=== PATIENT | female | born 1945 | race Caucasian/White ===

== ENCOUNTER → 2020-03-13 11:03 | Outpatient (BNVA) | payer MEDICARE, MEDICAID, SELFPAY | PROVIDERS: PCP Family Medicine; Referring Provider Physician Assistant; Visit Provider Internal Medicine | DX: J44.9 Chronic obstructive pulmonary disease, unspecified (principal); G47.34 Idiopathic sleep related nonobstructive alveolar hypoventilation; F17.210 Nicotine dependence, cigarettes, uncomplicated; Z79.899 Other long term (current) drug therapy; Z71.6 Tobacco abuse counseling | CPT/HCPCS: 99212 ==

== ENCOUNTER → 2020-07-09 11:04 | Outpatient (BNVA) | payer MEDICARE, MEDICAID, SELFPAY | PROVIDERS: PCP Family Medicine; Visit Provider Internal Medicine | DX: J44.9 Chronic obstructive pulmonary disease, unspecified (principal); F17.200 Nicotine dependence, unspecified, uncomplicated; G47.34 Idiopathic sleep related nonobstructive alveolar hypoventilation | CPT/HCPCS: 99212 ==

== ENCOUNTER → 2020-12-01 11:25 | Outpatient (BNVA) | payer MEDICARE, MEDICAID, SELFPAY | PROVIDERS: PCP Internal Medicine; Visit Provider Internal Medicine | DX: J44.9 Chronic obstructive pulmonary disease, unspecified (principal); G47.34 Idiopathic sleep related nonobstructive alveolar hypoventilation; F17.200 Nicotine dependence, unspecified, uncomplicated | CPT/HCPCS: 99212 ==

== ENCOUNTER 2022-02-25 11:48 | Outpatient (REF) | payer MEDICARE, MEDICAID, SELFPAY ==
[2022-02-25 12:16] LABS: MANUAL DIFF FLAG NO
[2022-02-25 12:51] LABS: Basophils Absolute Auto 0.1 X10*3/uL (0.0-0.2); Basophils Percent Auto 0.9 % (0-2); Eosinophils Absolute Auto 0.1 X10*3/uL (0.0-0.4); Eosinophils Percent Auto 1.9 % (0-4); Hematocrit 42.2 % (37.0-47.0); Hemoglobin 13.9 g/dl (12.0-16.0); Imm Gran Abs Auto 0.01 X10*3/uL (0.00-0.03); Imm Gran Pct Auto 0.2 % (0.0-0.4); Lymphocytes Absolute Auto 1.8 X10*3/uL (1.2-4.9); Lymphocytes Percent Auto 33.8 % (20-40); Mean Corpuscular HGB Conc 32.9 g/dl (31.0-35.0); Mean Corpuscular Hemoglobin 34.1 pg (27.0-33.0); Mean Corpuscular Volume 103.4 fL (80.0-98.0); Mean Platelet Volume 10.3 fL (9.4-12.3); Monocytes Absolute Auto 0.4 X10*3/uL (0.1-1.2); Neutrophils Percent Auto 55.2 % (45-73); Platelet Count 209 X10*3/uL (160-400); Red Blood Count 4.08 X10*6/uL (4.20-5.50); Red Cell Distribution Width 13.6 % (11.0-16.0); White Blood Count 5.4 X10*3/uL (4.8-10.8)
[2022-02-25 13:31] LABS: Appearance Urine Clear; Color Urine Dark Yellow; Glucose Urine UA Negative (Negative); Leukocyte Esterase Urine Trace (Negative); Nitrite Urine Negative (Negative); Specific Gravity - Urine 1.025 (1.005-1.025); UMIC TRIGGER UACC YES; Urine Blood Negative (Negative); Urine Ketones Negative (Negative); Urine Protein Trace mg/dL (Neg-Trace)
[2022-02-25 13:38] LABS: Alanine Aminotransferase 6 U/L (0-31); Albumin Level 4.1 g/dL (3.5-5.0); Alkaline Phosphatase 86 U/L (39-117); Anion Gap 17 (12-20); Aspartate Amino Transferase 13 U/L (5-31); Bilirubin Total 0.5 mg/dL (0.0-1.0); Blood Urea Nitrogen 12 mg/dL (9-16); Calcium 9.1 mg/dL (8.4-10.2); Carbon Dioxide 27 mmol/L (22-29); Chloride 103 mmol/L (96-108); Cholesterol 218 mg/dL; Estimated Glomerular Filt Rate > 60; Glucose Fasting 87 mg/dL (60-99); HDL Cholesterol 48 mg/dL; LDL Cholesterol Calculated 150 mg/dl; Potassium 4.8 mmol/L (3.3-5.1); Sodium 142 mmol/L (135-145); Total Protein 6.8 g/dL (6.5-8.0); Triglycerides 100 mg/dL
[2022-02-25 13:41] LABS: Bacteria Urine Trace (None Seen); Hyaline Casts Urine 0-2 /LPF (0-2); WBC Urine 0-5 /HPF (0-5)
[2022-02-25 13:50] LABS: TSH reflex Free T4 1.39 uIU/mL (0.32-4.0); Vitamin D 25-OH Total 9.5 ng/mL (>30)
== END 2022-02-25 11:49 | disposition home or self-care (01) ==
LOC: HO.LAB 11:48
PROVIDERS: PCP Internal Medicine; Visit Provider Internal Medicine
DX: E78.00 Pure hypercholesterolemia, unspecified (principal); E55.9 Vitamin D deficiency, unspecified; I10 Essential (primary) hypertension
CPT/HCPCS: 36415; 80053; 80061; 81001; 82306; 84443; 85025

== ENCOUNTER 2022-08-26 12:32 | Outpatient (REF) | payer MEDICARE, MEDICAID, SELFPAY ==
--- NOTE | ~2022-08-26 | XR_ITS ---
EXAMINATION: XR CHEST CLINICAL INFORMATION: Dyspnea. COMPARISON: 05/28/2018 TECHNIQUE: 2 views of the chest were obtained. FINDINGS: There is mild chronic interstitial lung disease present. There is some peripheral diminished vascularity consistent with emphysematous change. Central pulmonary arteries are prominent. Heart normal size. No pneumothorax or pleural effusion. No evidence of pulmonary edema. XR/XR chest 2V IMPRESSION: COPD with small amount of chronic interstitial lung disease.
== END 2022-08-26 12:33 | disposition home or self-care (01) ==
LOC: HO.XRAY 12:32
PROVIDERS: PCP Internal Medicine; Visit Provider Internal Medicine
DX: R06.00 Dyspnea, unspecified (principal); J44.9 Chronic obstructive pulmonary disease, unspecified
CPT/HCPCS: 71046

== ENCOUNTER 2023-07-01 13:55 | Outpatient (AMB) | payer MEDICARE, MEDICAID, SELFPAY ==
[2023-07-01 14:10] VITALS: BP 130/70; PULSE 67; O2SAT 93; BMI 20.6
--- NOTE | 2023-07-01 14:10 | MHC.PC.OV ---
Vital Signs 07/01/23 14:10 Height 5 ft 3 in Weight 116 lb 8 oz BMI 20.6 BP 130/70 Blood Pressure Location Lt brachial Position Sitting Pulse 67 Pulse Source Pulse Oximeter Pulse Oximetry (%) 93 Oxygen Delivery Method Room Air Intake Visit Reasons: COPD, hyperlipidemia Hand Funnel Coater Required: No Accompanied by: Self / Same As Patient Allergies oxycodone [From PERCOCET] Allergy (Intermediate, Verified 07/03/23 12:46) HIVES bacitracin [BACITRACIN] Allergy (Unknown, Verified 07/03/23 12:46) BLISTERS, rash Medication List - Last Reconciled 07/03/23 by Lanre Webb MD Advair Diskus 250-50 mcg/dose (fluticasone propion-salmeterol) 1 inh inhalation BID 90 days NS albuterol sulfate 90 mcg/actuation 2 puffs inhalation Q6H PRN 90 days cholecalciferol (vitamin D3) 50 mcg PO DAILY 90 days Incruse Ellipta 62.5 mcg/actuation (umeclidinium) 1 inh inhalation DAILY 90 days NS metoprolol tartrate 25 mg PO BID 90 days nitroglycerin 0.4 mg sublingual Q5M PRN [OXYGEN CONCENTRATOR As directed] prednisone 4 tablets x 3 days, then 3 tablets x 3 days, then 2 tablets x 3 days, then 1 tablet x 3 days 12 days sennosides (senna) Take 2 capsules daily at bedtime for 7 days, then 1 to 2 capsules daily at bedtime as needed 30 days sertraline 50 mg PO DAILY 90 days tizanidine 4 mg PO BID PRN trazodone 50 mg PO BEDTIME PRN 90 days Tobacco use date assessed: 07/01/23 Fall risk assessment: No Falls in past year Last assessed Fall Risk: 07/01/23 Dental Screening Dental Screen Date: 07/01/23 Did you have a dental visit in the last 12 months?: Yes Did you have a dental problem in the last 6 months where you did not have access to dental care?: No Was dental information given to patient?: Patient has dentist HPI COPD, hyperlipidemia HPI Details Patient comes in today for her follow up visit States that she has been sick with increased cough and congestion and on and off SOB for almost 2 months now (since before ) and that she tried calling in for an appointment at the beginning of the year unsuccessfully States that she also tried asking for some Rx for oral Prednisone until she is able to be seen but was reportedly denied having the Rx called in States that she has then just been taking any cough/cold medications that she could get her hands on to get through until she is able to come in today States that her cough and respiratory symptoms have gotten so bad that she even quit smoking completely over the past couple of weeks ago, something she thought she would not be doing before Adds that she has been experiencing some lower abdominal pain and discomfort for a couple of weeks now States that she has not seen any blood in her stool but relates that her bowels have been softer than usual lately (loose at times) - is thinking that she may be having a bout of some diverticulitis at present She denies any fever or chills; denies any sore throat Denies any headaches or dizziness Denies any chest pains No nausea/vomiting lately and patient denies any acute urinary symptoms She will need her Rx inhalers refilled and would also like to get an Rx for an oxygen concentrator to help with her COPD symptoms PFSH Medical History Vitamin D deficiency Pure hypercholesterolemia Smoker Coronary artery disease Anxiety and depression Insomnia Nocturnal hypoxemia COPD (chronic obstructive pulmonary disease) Smoking Surgical History History of heart artery stent S/P skin cancer resection S/P Mohs surgery for basal cell carcinoma Status post open reduction with internal fixation (ORIF) of fracture of ankle History of lumpectomy of left breast Status post appendectomy Status post SHABBIR-BSO Family History Brother Hypertension Diabetes mellitus Myocardial infarction Colon cancer, Onset Age: 70 Sister Hypertension Diabetes mellitus Father Hypertension Stroke Daughter Breast cancer, Onset Age: 49 Mother Myocardial infarction Social History Housing: Apartment Alcohol intake: current Alcohol intake frequency: a few times a month Alcohol type: wine Patient Tobacco Use Status: Former Tobacco user Tobacco use type: Cigarette e-Cigarette/Vaping Use: Never Used Second Hand Smoke Exposure: Yes Current occupational status: retired and disabled Cognitive needs: No Hearing needs: No Vision needs: Yes Questionnaire PHQ-9 Over the last 2 weeks, how often have you been bothered by any of the following problems? 1. Little interest or pleasure in doing things: nearly every day 2. Feeling down, depressed, or hopeless: nearly every day 3. Trouble falling or staying asleep, or sleeping too much: nearly every day 4. Feeling tired or having little energy: nearly every day 5. Poor appetite or overeating: nearly every day 6. Feeling bad about yourself - or that you are a failure or have let yourself or your family down: not at all 7. Trouble concentrating on things, such as reading the newspaper or watching television: several days 8. Moving or speaking so slowly that other people could have noticed. Or the opposite - being so fidgety or restless that you have been moving around a lot more than usual: not at all 9. Thoughts that you would be better off or of hurting yourself in some way: not at all Total score: 16 Depression Screening Interpretation: Positive Depression Screening Follow-up: Existing condition and In treatment Depression Screening Done: Yes 65066 - PHQ-9 Billing: Yes Source: Developed by Drs. Daniel Petersen, Valarie Montgomery, Dami Doyle and colleagues, with an educational marie from [employer]. Thrive Questionnaire Date Thrive assessed: 07/01/23 I am a: Patient What is your living situation today?: I have a steady place to live Within the past 12 months, did the food you bought not last and you didn't have the money to get more?: Never true Within the past 12 months, did you worry whether your food would run out before you got money to buy more?: Never true Do you have trouble paying for medicines?: No Do you have trouble getting transportation to medical appointments?: No Do you have trouble paying your heating and electricity bill?: No Do you have trouble taking care of your child, family member or friend?: No Do you have trouble with day-to-day activities such as bathing, preparing meals, shopping, managing finances, etc.?: No Are you currently unemployed and looking for a job?: No Are you interested in more education?: No Please select the resources that you would like help with: None Currently or been in a relationship where the following occur: no concerns reported THRIVE Score: 0 AUDIT C Alcohol Use Questionnaire (AUDIT-C) 1. How often do you have a drink containing alcohol?: 2-3 times a week 2. How many drinks containing alcohol do you have on a typical day when you are drinking?: 1 or 2 (max is 3) 3. How often do you have six or more drinks on one occasion?: Never Total Score: 3 Score Reviewed/Action Taken: Yes RAUL-7 AMB Questionnaire RAUL-7 Date RAUL - 7 assessed: 07/01/23 Feeling nervous, anxious, or on edge: 1 = Several days Not being able to stop or control worryin = Not at all Worrying too much about different things: 0 = Not at all Trouble relaxin = Not at all Being so restless that it is hard to sit still: 0 = Not at all Becoming easily annoyed or irritable: 3 = Nearly every day Feeling afraid as if something awful might happen: 0 = Not at all Total RAUL-7 score (0-4 normal; 5-9 mild; 10-14 moderate; 15-21 severe): 4 Source: Developed by Drs. Daniel Petersen, Valarie Montgomery, Dami Doyle and colleagues, with an educational marie from [employer]. Review of Systems Const Reports body aches (diffuse), Denies chills, Reports fatigue, Denies fever(s) and Denies headache(s) ENT Denies dysphagia, Denies dizziness, Denies otalgia, Denies headache(s), Reports nasal congestion, Reports neck pain, Denies odynophagia and Denies sore throat Card Denies chest pain, Denies rapid heart rate, Denies palpitations and Reports dyspnea on exertion Resp Reports chest congestion (chest feels tight at times), Reports cough (recurrent and increased for a couple of months now), Reports excessive phlegm production (coughs up thick whitish to yellowish phlegm often), Denies pain with cough, Reports dyspnea on exertion and Reports wheezing (at times) GI Reports abdominal pain (most over the lower abdomen - see HPI), Reports constipation, Denies dysphagia, Denies heartburn, Denies diarrhea, Denies nausea, Denies odynophagia and Denies vomiting Denies difficulty voiding, Denies nocturia, Denies dysuria and Denies urinary urgency Musc Reports back pain (over the lower back), Reports myalgias, Denies arthralgias and Reports neck pain Skin/Breast Denies rash Neuro Denies dizziness and Denies headache(s) Endo Reports fatigue and Denies palpitations Aller/Immun Reports wheezing (at times) Physical exam (Primary Care) Vital Signs: Last Vital Signs Pulse 67 07/01/23 14:10 BP 130/70 07/01/23 14:10 Pulse Ox 93 07/01/23 14:10 Oxygen Delivery Method Room Air 07/01/23 14:10 BMI result Body Mass Index 20.6 Tobacco/Smoking Status: Tobacco use Status Tobacco use date assessed 07/01/23 07/01/23 14:14 Patient Tobacco Use Status Former Tobacco user 07/01/23 14:44 Tobacco use type Cigarette 07/01/23 14:44 e-Cigarette/Vaping Use Never Used 07/01/23 14:44 PHQ-9: PHQ-9 Score PHQ-9: Total score 16 07/03/23 12:46 Depression Screening Interpretation: Positive Depression Screening Follow-up: Existing condition and In treatment Thrive Assessment: Date of Thrive Assessment Date Thrive assessed 07/01/23 07/01/23 14:14 Currently or been in a relationship where the following occur: no concerns reported Const General: no acute distress and alert HENMT Ears: TM's normal bilaterally and EAC's normal Throat: Yes posterior oropharynx normal and Yes tonsils normal (no TP congestion) Neck Neck: Yes no lymphadenopathy and Yes supple Resp Auscultation: no crackles, no rales, rhonchi (scattered) throughout, wheezes expiratory wheezes and throughout, diminished lung sounds bilateral and bronchial breath sounds Cardio Rate: regular rate Rhythm: regular rhythm Heart sounds: no murmurs GI Palpation (GI): Soft to palpation, Tenderness to palpation present (GI) (over the lower abdomen) with no rebound tenderness, no guarding, not rigid, no hernias and no masses General: Yes no CVA tenderness Back/Spine/Pelvis Back: no CVA tenderness Cervical Spine: Cervical spine tenderness Thoracic/Lumbar Spine: lumbar spinal tenderness Skin Rashes: no rashes Extrem General: Yes no clubbing, cyanosis or edema Assessment and Plan Assessment & Plan (1) COPD exacerbation: Code(s): J44.1 - Chronic obstructive pulmonary disease with (acute) exacerbation Plan: She has moderately severe COPD and currently again has acute exacerbation Will start patient on oral Prednisone taper Continue Advair Diskus 250-50 mcg 1 inhalation BID and Incruse Ellipta 62.5 mcg 1 inhalation QD Continue Albuterol HFA 1 to 2 inhalations every 6 hours as needed She used to see Dr. Ellis for pulmonary follow up but has not been back to see him since November 2020 - states that she felt that he was very rude at her last appointment when she told him that she was not going to quit smoking and she does not wish to go back to see him. although she ended up quitting smoking completely about 2 weeks ago due to her increased chest tightness and congestion and recent respiratory symptoms - states that she was getting to a point where she could not catch her breath Have advised her that we can try referring her to another engagement specialist if she wants but she declined offer for a pulmonary referral at this time Per request, will provide her with Rx for an oxygen concentrator and she will try to obtain this from her medical supply store of choice Have also encouraged patient to try to do everything she can to NOT go back to smoking again when she is feeling better (2) Nocturnal hypoxemia: Comment: USE O2 2 L/MT AT NIGHT AND MAY USE DURING DAYTIME , PRN Code(s): G47.34 - Idiopathic sleep related nonobstructive alveolar hypoventilation Plan: Continue using oxygen when sleeping at night as needed although she has again been using it more often lately due to her current COPD exacerbation Follow up with Sleep Medicine/ Pulmonary as scheduled (3) Abdominal pain: Code(s): R10.9 - Unspecified abdominal pain Qualifiers: Abdominal location: lower abdomen, unspecified Qualified Code(s): R10.30 - Lower abdominal pain, unspecified Plan: Will send her for some labs and for abdominal x-rays JENNIFER for further evaluation (4) Coronary artery disease: Code(s): I25.10 - Atherosclerotic heart disease of [place] coronary artery without angina pectoris Qualifiers: Coronary Disease-Associated Artery/Lesion type: [place] artery [place] vs. transplanted heart: [place] heart Associated angina: without angina Qualified Code(s): I25.10 - Atherosclerotic heart disease of [place] coronary artery without angina pectoris Plan: Currently remains asymptomatic from cardiovascular standpoint Continue Metoprolol 25 mg BID (5) Pure hypercholesterolemia: Code(s): E78.00 - Pure hypercholesterolemia, unspecified Plan: She has not had any follow up labs done since February 2022 - states that it is difficult for her to keep getting labs done often as she has no easy access to transportation She is advised that her total and LDL cholesterol numbers were elevated at 218 and 150 mg/dl respectively when they were last checked in February 2022 Reinforced low cholesterol diet Have again discussed option of starting her on Rx for her cholesterol but patient declined - states that she has had problems tolerating statins in the past (6) Vitamin D deficiency: Code(s): E55.9 - Vitamin D deficiency, unspecified Plan: Continue Vitamin D3 2000 units QD (7) Constipation: Code(s): K59.00 - Constipation, unspecified Qualifiers: Constipation type: unspecified constipation type Qualified Code(s): K59.00 - Constipation, unspecified Plan: Encouraged increased oral fluids and dietary fiber Continue Senna 8.6 mg 1 to 2 caps Q HS PRN (8) Cervical spondylosis: Code(s): M47.812 - Spondylosis without myelopathy or radiculopathy, cervical region Plan: (+) mild spondylosis seen on cervical spine x-rays done at [facility] several years ago Patient declined offer to send her for repeat cervical spine x-rays for follow up She is again advised to take some OTC Tylenol or Ibuprofen (take with food) for pain when needed (9) Insomnia: Code(s): G47.00 - Insomnia, unspecified Qualifiers: Insomnia type: unspecified Qualified Code(s): G47.00 - Insomnia, unspecified Plan: Sleep hygiene reinforced Continue Trazodone 50 mg Q HS PRN (10) Anxiety and depression: Code(s): F41.9 - Anxiety disorder, unspecified; F32.9 - Major depressive disorder, single episode, unspecified Plan: Continue Sertraline 50 mg QD Plan Follow up in 3 months Orders: Orders XR abdomen w decubitus 07/01/23 R10.9 - Unspecified abdominal pain Complete Blood Count Auto Diff 07/01/23 D64.9 - Anemia, unspecified, R10.9 - Unspecified abdominal pain Erythrocyte Sedimentation Rate 07/01/23 R10.9 - Unspecified abdominal pain TSH reflex Free T4 07/01/23 E78.00 - Pure hypercholesterolemia, unspecified, R10.9 - Unspecified abdominal pain UA CC w/rflx Micro + Cult 07/01/23 R10.9 - Unspecified abdominal pain, R30.0 - Dysuria Lipase 07/01/23 R10.9 - Unspecified abdominal pain Comprehensive Met. Panel 07/01/23 R10.9 - Unspecified abdominal pain Vitamin D 25-OH Total 07/01/23 E55.9 - Vitamin D deficiency, unspecified, R10.9 - Unspecified abdominal pain Medications: New prednisone 4 tablets x 3 days, then 3 tablets x 3 days, then 2 tablets x 3 days, then 1 tablet x 3 days 12 days 33 ea 0RF J45.901 - Unspecified asthma with (acute) exacerbation, M25.50 - Pain in unspecified joint [OXYGEN CONCENTRATOR] As directed 1 ea 0RF J44.9 - Chronic obstructive pulmonary disease, unspecified Refilled Incruse Ellipta 62.5 mcg/actuation (umeclidinium) 1 inh inhalation DAILY 90 days 90 ea 1RF NS albuterol sulfate 90 mcg/actuation 2 puffs inhalation Q6H 90 days PRN 3 inhalers 1RF shortness of breath or wheezing Advair Diskus 250-50 mcg/dose (fluticasone propion-salmeterol) 1 inh inhalation BID 90 days 3 inhalers 1RF NS Discontinued prednisone Discontinued Reason: Patient Completed Course 4 tablets x 3 days, then 3 tablets x 3 days, then 2 tablets x 3 days, then 1 tablet x 3 days 12 days 33 ea 0RF J45.901 - Unspecified asthma with (acute) exacerbation, M25.50 - Pain in unspecified joint Coding Level of Care Code Est Pt Level 4 (99499) Diagnoses COPD exacerbation J44.1 Nocturnal hypoxemia G47.34 Lower abdominal pain R10.30 Abdominal location: lower abdomen, unspecified Coronary artery disease involving te[place] coronary artery of [place] heart without angina pectoris I25.10 Coronary Disease-Associated Artery/Lesion type: [place] artery [place] vs. transplanted heart: [place] heart Associated angina: without angina Pure hypercholesterolemia E78.00 Vitamin D deficiency E55.9 Constipation, unspecified constipation type K59.00 Constipation type: unspecified constipation type Cervical spondylosis M47.812 Insomnia, unspecified type G47.00 Insomnia type: unspecified Anxiety and depression F41.9; F32.9
== END 2023-07-01 14:55 | disposition home or self-care (01) ==
PROVIDERS: PCP Internal Medicine; Visit Provider Internal Medicine
DX: J44.1 Chronic obstructive pulmonary disease with (acute) exacerbation (principal); G47.34 Idiopathic sleep related nonobstructive alveolar hypoventilation; R10.30 Lower abdominal pain, unspecified; I25.10 Atherosclerotic heart disease of native coronary artery without angina pectoris; E78.00 Pure hypercholesterolemia, unspecified; E55.9 Vitamin D deficiency, unspecified; K59.00 Constipation, unspecified; M47.812 Spondylosis without myelopathy or radiculopathy, cervical region; G47.00 Insomnia, unspecified; F41.9 Anxiety disorder, unspecified; F32.9 Major depressive disorder, single episode, unspecified
CPT/HCPCS: 99214

== ENCOUNTER 2023-09-30 10:59 | Outpatient (AMB) | payer MEDICARE, MEDICAID, SELFPAY ==
[2023-09-30 11:03] VITALS: BP 110/52; PULSE 60; O2SAT 93; BMI 21.8
--- NOTE | 2023-09-30 11:03 | MHC.PC.OV ---
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 Dietitian Assistant: Not Required per policy Accompanied by: Self / Same As Patient Allergies nickel Allergy (Intermediate, Verified 09/30/23 11:31) Hives oxycodone [From PERCOCET] Allergy (Intermediate, Verified 09/30/23 11:31) HIVES bacitracin [BACITRACIN] Allergy (Unknown, Verified 09/30/23 11:31) BLISTERS, rash Medication List - Last Reconciled 09/30/23 by Lanre Webb MD Advair Diskus 250-50 mcg/dose (fluticasone propion-salmeterol) 1 inh inhalation BID 90 days NS albuterol sulfate 90 mcg/actuation 2 puffs inhalation Q6H PRN 90 days cholecalciferol (vitamin D3) 50 mcg PO DAILY 90 days Incruse Ellipta 62.5 mcg/actuation (umeclidinium) 1 inh inhalation DAILY 90 days NS metoprolol tartrate 25 mg PO BID 90 days nitroglycerin 0.4 mg sublingual Q5M PRN [OXYGEN CONCENTRATOR As directed] prednisone 4 tablets x 3 days, then 3 tablets x 3 days, then 2 tablets x 3 days, then 1 tablet x 3 days 12 days sennosides (senna) Take 2 capsules daily at bedtime for 7 days, then 1 to 2 capsules daily at bedtime as needed 30 days sertraline 50 mg PO DAILY 90 days tizanidine 4 mg PO BID PRN trazodone 50 mg PO BEDTIME PRN 90 days Tobacco use date assessed: 07/01/23 Fall risk assessment: No Falls in past year Last assessed Fall Risk: 09/30/23 Dental Screening Dental Screen Date: 07/01/23 HPI COPD, abdominal pain, hyperlipidemia HPI Details Patient comes in today for her follow up visit States that she feels okay She denies any headaches or dizziness Denies any chest pains, no shortness of breath No nausea /vomiting; still has on and off mild lower abdominal pain No change in bowel habits noted She was not able to get her follow-up labs done yet - states that she can not go and get them done after her visit today as long as fasting is not required [facility] Medical History Vitamin D deficiency Pure hypercholesterolemia Smoker Coronary artery disease Anxiety and depression Insomnia Nocturnal hypoxemia COPD (chronic obstructive pulmonary disease) Smoking Surgical History History of heart artery stent S/P skin cancer resection S/P Mohs surgery for basal cell carcinoma Status post open reduction with internal fixation (ORIF) of fracture of ankle History of lumpectomy of left breast Status post appendectomy Status post SHABBIR-BSO Family History Brother Hypertension Diabetes mellitus Myocardial infarction Colon cancer, Onset Age: 70 Sister Hypertension Diabetes mellitus Father Hypertension Stroke Daughter Breast cancer, Onset Age: 49 Mother Myocardial infarction Social History Housing: Apartment Alcohol intake: current Alcohol intake frequency: a few times a month Alcohol type: wine Patient Tobacco Use Status: Former Tobacco user Tobacco use type: Cigarette e-Cigarette/Vaping Use: Never Used Second Hand Smoke Exposure: Yes Current occupational status: retired and disabled Cognitive needs: No Hearing needs: No Vision needs: Yes Questionnaire Thrive Questionnaire Date Thrive assessed: 07/01/23 RAUL-7 AMB Questionnaire RAUL-7 Date RAUL - 7 assessed: 07/01/23 Source: Developed by Drs. Daniel Petersen, Valarie Montgomery, Dami Doyle and colleagues, with an educational marie from [email or web address]. Review of Systems Const Denies chills, Reports fatigue, Denies fever(s) and Denies headache(s) ENT Denies dysphagia, Denies dizziness, Denies otalgia, Denies headache(s), Reports nasal congestion, Reports neck pain, Denies odynophagia and Denies sore throat Card Denies chest pain, Denies rapid heart rate, Denies palpitations and Reports dyspnea on exertion Resp Reports chest congestion (chest feels tight at times), Reports cough (on and off), Reports excessive phlegm production (coughs up thick whitish to yellowish phlegm often), Denies pain with cough, Reports dyspnea on exertion and Denies wheezing GI Reports abdominal pain (most over the lower abdomen - see HPI), Reports constipation, Denies dysphagia, Denies heartburn, Denies diarrhea, Denies nausea, Denies odynophagia and Denies vomiting Denies difficulty voiding, Denies nocturia, Denies dysuria and Denies urinary urgency Musc Reports back pain (over the lower back), Reports myalgias, Denies arthralgias and Reports neck pain Skin/Breast Denies rash Neuro Denies dizziness and Denies headache(s) Endo Reports fatigue and Denies palpitations Aller/Immun Denies wheezing Physical exam (Primary Care) Vital Signs: Last Vital Signs Pulse 60 09/30/23 11:03 BP 110/52 L 09/30/23 11:03 Pulse Ox 93 09/30/23 11:03 Oxygen Delivery Method Room Air 09/30/23 11:03 BMI result Body Mass Index 21.8 Tobacco/Smoking Status: Tobacco use Status Tobacco use date assessed 07/01/23 09/30/23 11:03 Patient Tobacco Use Status Former Tobacco user 09/30/23 11:03 Tobacco use type Cigarette 09/30/23 11:03 e-Cigarette/Vaping Use Never Used 09/30/23 11:03 Thrive Assessment: Date of Thrive Assessment Date Thrive assessed 07/01/23 09/30/23 11:03 Const General: no acute distress and alert HENMT Ears: TM's normal bilaterally and EAC's normal Throat: Yes posterior oropharynx normal and Yes tonsils normal (no TP congestion) Neck Neck: Yes no lymphadenopathy and Yes supple Thyroid: Thyroid normal Resp Auscultation: no crackles, no rales, rhonchi (occasional) throughout, no wheezes and diminished lung sounds bilateral Cardio Rate: regular rate Rhythm: regular rhythm Heart sounds: no murmurs GI Palpation (GI): Soft to palpation, Tenderness to palpation present (GI) (over the lower abdomen) with no rebound tenderness, no guarding, not rigid, no hernias and no masses General: Yes no CVA tenderness Back/Spine/Pelvis Back: no CVA tenderness Cervical Spine: Cervical spine tenderness Thoracic/Lumbar Spine: lumbar spinal tenderness Skin Rashes: no rashes Extrem General: Yes no clubbing, cyanosis or edema Assessment and Plan Assessment & Plan (1) COPD exacerbation: Code(s): J44.1 - Chronic obstructive pulmonary disease with (acute) exacerbation Plan: She has moderately severe COPD and it appears that she is still not adequately controlled at present Will have her increase her Advair Diskus 250-50 mcg from 1 to 2 inhalations BID and continue on Incruse Ellipta 62.5 mcg 1 inhalation QD Continue Albuterol HFA 1 to 2 inhalations every 6 hours as needed Will also start her on Montelukast 10 mg QPM She used to see Dr. Ellis for pulmonary follow up but has not been back to see him since November 2020 - states that she felt that he was very rude at her last appointment when she told him that she was not going to quit smoking and she does not wish to go back to see him. although she ended up quitting smoking completely a few months ago due to her increased chest tightness and congestion and respiratory symptoms - states that she was getting to a point where she could not catch her breath Have advised her that we can try referring her to another start up specialist if she wants but she declined offer for a pulmonary referral at this time (2) Nocturnal hypoxemia: Comment: USE O2 2 L/MT AT NIGHT AND MAY USE DURING DAYTIME , PRN Code(s): G47.34 - Idiopathic sleep related nonobstructive alveolar hypoventilation Plan: Continue using oxygen when sleeping at night as needed although she has again been using it more often lately due to her current COPD exacerbation Follow up with Sleep Medicine/ Pulmonary as scheduled (3) Abdominal pain: Code(s): R10.9 - Unspecified abdominal pain Qualifiers: Abdominal location: lower abdomen, unspecified Qualified Code(s): R10.30 - Lower abdominal pain, unspecified Plan: We previously sent her for some labs and for abdominal x-rays JENNIFER for further evaluation but she has not had them done States that she can go and get her labs done at her visit today (4) Coronary artery disease: Code(s): I25.10 - Atherosclerotic heart disease of [place] coronary artery without angina pectoris Qualifiers: Associated angina: without angina Coronary Disease-Associated Artery/Lesion type: [place] artery [place] vs. transplanted heart: [place] heart Qualified Code(s): I25.10 - Atherosclerotic heart disease of [place] coronary artery without angina pectoris Plan: Currently remains asymptomatic from cardiovascular standpoint Continue Metoprolol 25 mg BID (5) Pure hypercholesterolemia: Code(s): E78.00 - Pure hypercholesterolemia, unspecified Plan: She has not had any follow up labs done since February 2022 - states that it is difficult for her to keep getting labs done often as she has no easy access to transportation She is advised that her total and LDL cholesterol numbers were elevated at 218 and 150 mg/dl respectively when they were last checked in February 2022 Reinforced low cholesterol diet Have again discussed option of starting her on Rx for her cholesterol but patient declined - states that she has had problems tolerating statins in the past (6) Vitamin D deficiency: Code(s): E55.9 - Vitamin D deficiency, unspecified Plan: Continue Vitamin D3 2000 units QD (7) Constipation: Code(s): K59.00 - Constipation, unspecified Qualifiers: Constipation type: unspecified constipation type Qualified Code(s): K59.00 - Constipation, unspecified Plan: Encouraged increased oral fluids and dietary fiber Continue Senna 8.6 mg 1 to 2 caps Q HS PRN (8) Cervical spondylosis: Code(s): M47.812 - Spondylosis without myelopathy or radiculopathy, cervical region Plan: (+) mild spondylosis seen on cervical spine x-rays done at [facility] several years ago Patient declined offer to send her for repeat cervical spine x-rays for follow up She is again advised to take some OTC Tylenol or Ibuprofen (take with food) for pain when needed (9) Insomnia: Code(s): G47.00 - Insomnia, unspecified Qualifiers: Insomnia type: unspecified Qualified Code(s): G47.00 - Insomnia, unspecified Plan: Sleep hygiene reinforced Continue Trazodone 50 mg Q HS PRN (10) Anxiety and depression: Code(s): F41.9 - Anxiety disorder, unspecified; F32.9 - Major depressive disorder, single episode, unspecified Plan: Continue Sertraline 50 mg QD Plan Follow up in 4 months Medications: New montelukast 10 mg PO QPM 90 days 90 tabs 3RF Changed From Advair Diskus 250-50 mcg/dose (fluticasone propion-salmeterol) 1 inh inhalation BID 90 days 3 inhalers 1RF NS To Advair Diskus 250-50 mcg/dose (fluticasone propion-salmeterol) 2 inhalations inhalation BID 90 days 6 inhalers 1RF NS Refilled Incruse Ellipta 62.5 mcg/actuation (umeclidinium) 1 inh inhalation DAILY 90 days 90 ea 1RF NS Coding Level of Care Code Est Pt Level 4 (30494) Diagnoses COPD exacerbation J44.1 Nocturnal hypoxemia G47.34 Lower abdominal pain R10.30 Abdominal location: lower abdomen, unspecified Coronary artery disease involving [place] coronary artery of [place] heart without angina pectoris I25.10 Associated angina: without angina Coronary Disease-Associated Artery/Lesion type: [place] artery [place] vs. transplanted heart: [place] heart Pure hypercholesterolemia E78.00 Vitamin D deficiency E55.9 Constipation, unspecified constipation type K59.00 Constipation type: unspecified constipation type Cervical spondylosis M47.812 Insomnia, unspecified type G47.00 Insomnia type: unspecified Anxiety and depression F41.9; F32.9
== END 2023-09-30 11:43 | disposition home or self-care (01) ==
PROVIDERS: PCP Internal Medicine; Visit Provider Internal Medicine
DX: J44.1 Chronic obstructive pulmonary disease with (acute) exacerbation (principal); G47.34 Idiopathic sleep related nonobstructive alveolar hypoventilation; R10.30 Lower abdominal pain, unspecified; I25.10 Atherosclerotic heart disease of native coronary artery without angina pectoris; E78.00 Pure hypercholesterolemia, unspecified; E55.9 Vitamin D deficiency, unspecified; K59.00 Constipation, unspecified; M47.812 Spondylosis without myelopathy or radiculopathy, cervical region; G47.00 Insomnia, unspecified; F41.9 Anxiety disorder, unspecified
CPT/HCPCS: 99214

== ENCOUNTER 2023-09-30 11:58 | Outpatient (REF) | payer MEDICARE, MEDICAID, SELFPAY ==
[2023-09-30 12:19] LABS: MANUAL DIFF FLAG NO
[2023-09-30 12:55] LABS: Basophils Absolute Auto 0.1 X10*3/uL (0.0-0.2); Eosinophils Absolute Auto 0.1 X10*3/uL (0.0-0.4); Eosinophils Percent Auto 2.2 % (0-4); Hematocrit 37.1 % (37.0-47.0); Imm Gran Abs Auto 0.02 X10*3/uL (0.00-0.03); Imm Gran Pct Auto 0.4 % (0.0-0.4); Lymphocytes Absolute Auto 1.6 X10*3/uL (1.2-4.9); Lymphocytes Percent Auto 31.4 % (20-40); Mean Corpuscular HGB Conc 32.3 g/dl (31.0-35.0); Mean Corpuscular Hemoglobin 32.8 pg (27.0-33.0); Mean Corpuscular Volume 101.4 fL (80.0-98.0); Mean Platelet Volume 9.2 fL (9.4-12.3); Monocytes Absolute Auto 0.5 X10*3/uL (0.1-1.2); Monocytes Percent Auto 9.7 % (2-11); Neutrophils Absolute Auto 2.8 x10*3/uL (2.0-8.3); Neutrophils Percent Auto 55.3 % (45-73); Platelet Count 230 X10*3/uL (160-400); Red Blood Count 3.66 X10*6/uL (4.20-5.50); White Blood Count 5.1 X10*3/uL (4.8-10.8)
[2023-09-30 13:33] LABS: Erythrocyte Sedimentation Rate 54 MM/HR (0-20)
[2023-09-30 13:38] LABS: Alanine Aminotransferase 6 U/L (0-31); Albumin Level 3.6 g/dL (3.5-5.0); Alkaline Phosphatase 73 U/L (39-117); Anion Gap 11 (12-20); Aspartate Amino Transferase 11 U/L (5-31); Bilirubin Total 0.4 mg/dL (0.0-1.0); Blood Urea Nitrogen 11 mg/dL (9-16); Calcium 9.3 mg/dL (8.4-10.2); Carbon Dioxide 30 mmol/L (22-29); Chloride 104 mmol/L (96-108); Estimated Glomerular Filt Rate > 60; Glucose Random 110 mg/dL (60-115); Lipase 30 U/L (8-78); Potassium 4.2 mmol/L (3.3-5.1); Sodium 141 mmol/L (135-145); Total Protein 6.8 g/dL (6.5-8.0)
[2023-09-30 13:45] LABS: TSH reflex Free T4 1.27 uIU/mL (0.32-4.0); Vitamin D 25-OH Total 46.6 ng/mL (>30)
[2023-09-30 15:18] LABS: Appearance Urine Clear; Color Urine Dark Yellow; Glucose Urine UA Negative (Negative); Leukocyte Esterase Urine Trace (Negative); Nitrite Urine Negative (Negative); PH 6.5 (5.0-9.0); Specific Gravity - Urine >= 1.030 (1.005-1.025); UMIC TRIGGER UACC YES; Urine Blood Negative (Negative); Urine Ketones Trace mg/dL (Negative); Urine Protein Trace mg/dL (Neg-Trace)
[2023-09-30 15:30] LABS: Bacteria Urine 1+ (None Seen); RBC Urine 0-2 /HPF (0-2); WBC Urine 0-5 /HPF (0-5)
== END 2023-09-30 11:59 | disposition home or self-care (01) ==
LOC: HO.LAB 11:58
PROVIDERS: PCP Internal Medicine; Visit Provider Internal Medicine
DX: R10.9 Unspecified abdominal pain (principal); E55.9 Vitamin D deficiency, unspecified; D64.9 Anemia, unspecified; E78.00 Pure hypercholesterolemia, unspecified
CPT/HCPCS: 36415; 80053; 81001; 82306; 83690; 84443; 85025; 85652

== ENCOUNTER 2024-08-03 12:52 | Outpatient (REF) | payer MEDICARE, MEDICAID, SELFPAY ==
[2024-08-03 14:46] LABS: MANUAL DIFF FLAG NO
[2024-08-03 15:14] LABS: Basophils Percent Auto 0.9 % (0-2); Eosinophils Absolute Auto 0.1 X10*3/uL (0.0-0.4); Eosinophils Percent Auto 1.1 % (0-4); Hematocrit 37.4 % (37.0-47.0); Hemoglobin 11.9 g/dl (12.0-16.0); Imm Gran Abs Auto 0.02 X10*3/uL (0.00-0.03); Imm Gran Pct Auto 0.4 % (0.0-0.4); Lymphocytes Absolute Auto 1.3 X10*3/uL (1.2-4.9); Lymphocytes Percent Auto 28.9 % (20-40); Mean Corpuscular HGB Conc 31.8 g/dl (31.0-35.0); Mean Corpuscular Hemoglobin 32.9 pg (27.0-33.0); Mean Corpuscular Volume 103.3 fL (80.0-98.0); Mean Platelet Volume 9.7 fL (9.4-12.3); Monocytes Absolute Auto 0.5 X10*3/uL (0.1-1.2); Monocytes Percent Auto 9.9 % (2-11); Neutrophils Absolute Auto 2.7 x10*3/uL (2.0-8.3); Neutrophils Percent Auto 58.8 % (45-73); Platelet Count 161 X10*3/uL (160-400); Red Blood Count 3.62 X10*6/uL (4.20-5.50); White Blood Count 4.6 X10*3/uL (4.8-10.8)
[2024-08-03 15:28] LABS: Appearance Urine Cloudy; Color Urine Dark Yellow; Glucose Urine UA Negative (Negative); Leukocyte Esterase Urine Trace (Negative); Nitrite Urine Negative (Negative); PH 5.5 (5.0-9.0); Specific Gravity - Urine 1.025 (1.005-1.025); UMIC TRIGGER UACC YES; Urine Blood Trace (Negative); Urine Ketones Trace mg/dL (Negative); Urine Protein Trace mg/dL (Neg-Trace)
[2024-08-03 15:31] LABS: Bacteria Urine 2+ (None Seen); WBC Urine 0-5 /HPF (0-5)
[2024-08-03 17:39] LABS: Alanine Aminotransferase 14 U/L (0-31); Alkaline Phosphatase 61 U/L (39-117); Anion Gap 9 (12-20); Aspartate Amino Transferase 15 U/L (5-31); Bilirubin Total 0.4 mg/dL (0.0-1.0); Blood Urea Nitrogen 18 mg/dL (9-16); Calcium 9.3 mg/dL (8.4-10.2); Carbon Dioxide 34 mmol/L (22-29); Chloride 102 mmol/L (96-108); Cholesterol 220 mg/dL (<200); Estimated Glomerular Filt Rate > 60; Glucose Fasting 111 mg/dL (60-99); HDL Cholesterol 51 mg/dL (>40); LDL Cholesterol Calculated 151 mg/dL (<100); Lipase 15 U/L (8-78); Potassium 4.1 mmol/L (3.3-5.1); Sodium 141 mmol/L (135-145); Triglycerides 94 mg/dL (<150)
[2024-08-03 17:57] LABS: TSH reflex Free T4 1.69 uIU/mL (0.32-4.0); Vitamin D 25-OH Total 40.2 ng/mL (>30)
== END 2024-08-03 12:53 | disposition home or self-care (01) ==
LOC: HO.LAB 12:52
PROVIDERS: PCP Internal Medicine; Visit Provider Internal Medicine
DX: Z00.00 Encounter for general adult medical examination without abnormal findings (principal); J44.9 Chronic obstructive pulmonary disease, unspecified; G47.34 Idiopathic sleep related nonobstructive alveolar hypoventilation; R10.84 Generalized abdominal pain; I25.10 Atherosclerotic heart disease of native coronary artery without angina pectoris; E78.00 Pure hypercholesterolemia, unspecified; E55.9 Vitamin D deficiency, unspecified; K59.00 Constipation, unspecified; M47.812 Spondylosis without myelopathy or radiculopathy, cervical region; G47.00 Insomnia, unspecified; F41.9 Anxiety disorder, unspecified; F32.9 Major depressive disorder, single episode, unspecified; D64.9 Anemia, unspecified; Z79.899 Other long term (current) drug therapy
CPT/HCPCS: 36415; 80053; 80061; 81001; 82306; 83690; 84443; 85025; 96127; 99212

== ENCOUNTER 2024-08-03 12:52 | Outpatient (AMB) | payer MEDICARE, MEDICAID, SELFPAY ==
[2024-08-03 12:57] VITALS: BP 124/78; PULSE 56; O2SAT 93; BMI 20.2
--- NOTE | 2024-08-03 12:57 | AM.OFFVISMDC ---
Intake Vital Signs 08/03/24 12:57 Height 5 ft 3 in Weight 114 lb BMI 20.2 BP 124/78 Blood Pressure Location Lt brachial Position Sitting Pulse 56 Pulse Source Pulse Oximeter Pulse Oximetry (%) 93 Oxygen Delivery Method Nasal Cannula Oxygen Flow Rate 3 Intake Visit Reasons: AWV [employer] [employer] [facility] Required: No Accompanied by: Self / Same As Patient Allergies nickel Allergy (Intermediate, Verified 08/03/24 13:31) Hives oxycodone [From PERCOCET] Allergy (Intermediate, Verified 08/03/24 13:31) HIVES bacitracin [BACITRACIN] Allergy (Unknown, Verified 08/03/24 13:31) BLISTERS, rash Medication List - Last Reconciled 08/03/24 by Lanre Webb MD albuterol sulfate 90 mcg/actuation 2 puffs inhalation Q6H PRN 90 days cholecalciferol (vitamin D3) 50 mcg PO DAILY 90 days Incruse Ellipta 62.5 mcg/actuation (umeclidinium) 1 inh inhalation DAILY 90 days NS metoprolol tartrate 25 mg PO BID 90 days montelukast 10 mg PO QPM 90 days nitroglycerin 0.4 mg sublingual Q5M PRN [OXYGEN CONCENTRATOR As directed] prednisone 4 tablets x 3 days, then 3 tablets x 3 days, then 2 tablets x 3 days, then 1 tablet x 3 days 12 days sennosides (senna) Take 2 capsules daily at bedtime for 7 days, then 1 to 2 capsules daily at bedtime as needed 30 days sertraline 50 mg PO DAILY 90 days Spiriva Respimat 2.5 mcg/actuation (tiotropium bromide) 2 puffs inhalation DAILY NS tizanidine 4 mg PO BID PRN trazodone 50 mg PO BEDTIME PRN 90 days Wixela Inhub 250-50 mcg/dose (fluticasone propion-salmeterol) 2 inhalations inhalation BID 90 days NS Do you need a note to return to daycare/school/sports/work: No HPI AWV HPI Details Patient comes in today for her Annual Medicare Wellness Exam AND follow up visit - she was last seen here in September 2023 She is here today with her daughter, who brings her to her appointments as patient is no longer able to drive on her own Patient states that she has been experiencing frequent generalized abdominal pains for a while now Notes that her abdominal pains seem to get worse whenever she eats something so she often just avoids eating as much as possible so as not to trigger or aggravate her abdominal symptoms She has lost a lot of weight over the past year, likely in part due to her hardly eating anything because of her stomach issues She denies any constipation or diarrhea and states that she does move her bowels everyday although she does have to strain sometimes Relates (+) occasional nausea but denies any vomiting She denies any headaches or dizziness Denies any chest pains; (+) SOTO and she has oxygen on all the time at around 2 LPM, especially when she leaves the house She apparently has only been using her Albuterol inhaler and does not seem to have any controller inhaler (Wixela) at present She has no follow up labs done over the past year [place] of care was reviewed and updated today Patient does NOT have a healthcare proxy in place; they were provided with an HCP form, a MOLST form as well as a DNR form and have been instructed to complete these as soon as possible IPPE/AWV: c/o of Annual Wellness Visit, subsequent visit. Medical / Social History Reviewed Past Medical History Yes . [place] of Care / Care Team list updated Yes . Surgical/Hospitalization History Yes . Current Medications (including OTC and supplements) Yes . Family History Yes . Tobacco Control form Yes . AUDIT-C (Alcohol use) form Yes . Illicit drug use in Social History Yes . Current diagnosis of depression? No Appropriate PHQ2/PHQ9 completed Yes . Data entered by [facility] and reviewed by provider Home Safety Throw rugs? No Grab bars? Yes Raised toilet seats? No Working smoke detectors? Yes Working carbon monoxide detectors? Yes Data entered by [facility] and reviewed by provider Activities of Daily Living (ADLs) Difficulty bathing or showering? No Difficulty dressing? No Difficulty using the toilet? No Difficulty getting in and out of bed? No Difficulty walking? No Receives help from another person with any of the above tasks? No Instrumental Activities of Daily Living (IADLs) Uses the telephone without help Gets to places out of walking distance with help Goes shopping for groceries with help Prepares own meals without help Does own minor home maintenance with help Does own laundry with help Does own housework with help Manages own money without help Currently takes medications? Yes Takes medication without help End-of-Life Planning Discussed advance directive Yes Advance directive on file Discussed wishes expressed in advance directive agreed to following patient's wishes Fall Risk: Fall History Have you had any falls with injury in the past year? No . Have you had two or more falls in the past year? No . Fall Risk Assessment: No falls in the past year . HRA filled out by the patient, reviewed by Provider and scanned. [facility] Medical History Vitamin D deficiency Pure hypercholesterolemia Smoker Coronary artery disease Anxiety and depression Insomnia Nocturnal hypoxemia COPD (chronic obstructive pulmonary disease) Smoking Surgical History (Updated 08/04/24 @ 02:23 by Lanre Webb MD) History of esophagogastroduodenoscopy (EGD) Hx of colonoscopy History of heart artery stent S/P skin cancer resection S/P Mohs surgery for basal cell carcinoma Status post open reduction with internal fixation (ORIF) of fracture of ankle History of lumpectomy of left breast Status post appendectomy Status post SHABBIR-BSO Family History Brother Hypertension Diabetes mellitus Myocardial infarction Colon cancer, Onset Age: 70 Sister Hypertension Diabetes mellitus Father Hypertension Stroke Daughter Breast cancer, Onset Age: 49 Mother Myocardial infarction Social History Housing: Apartment Alcohol intake: current Alcohol intake frequency: a few times a month Alcohol type: wine Patient Tobacco Use Status: Former Tobacco user Tobacco use type: Cigarette e-Cigarette/Vaping Use: Never Used Second Hand Smoke Exposure: Yes Current occupational status: retired and disabled Cognitive needs: No Hearing needs: No Vision needs: Yes Questionnaire Medicare Wellness Checkup [age] What gender do you identify with?: female During the past 4 weeks, how much have you been bothered by emotional problems such as feeling anxious, depressed, irritable, sad or downhearted, and blue?: quite a bit During the past 4 weeks, has your physical & emotional health limited your social activities with family, friends, neighbors, or groups?: extremely During the past 4 weeks, how much bodily pain have you generally had?: moderate pain During the past 4 weeks, was someone available to help you if you needed & wanted help?: no, not at all During the past 4 weeks, what was the hardest physical activity you could do for at least 2 minutes?: very light Can you get to places out of walking distance without help? (For eg., can you travel alone on buses, taxis or drive your car?): No Can you go shopping for groceries or clothes without someone's help?: No Can you prepare your own meals?: No Can you do your housework without help?: No Because of any health problems, do you need the help of another person with your personal care needs such as eating, bathing, dressing or getting around the house?: No Can you handle your own money without help?: Yes During the past 4 weeks, how would you rate your health in general?: poor During the past 4 weeks how have things been going for you?: good & bad parts about equal Are you having difficulties driving your car?: not applicable, I don't use a car Do you always fasten your seat belt when you are in a car?: yes, usually During past 4 weeks, have you been bothered by the following: never: Problems using the telephone?, seldom: Teeth or denture problems?, sometimes: Trouble eating well?, often: Falling or dizzy when standing up and always: Tiredness or fatigue? Have you fallen 2 or more times in the past year?: No Are you afraid of falling?: Yes Are you a smoker?: yes, and I might quit During the past 4 weeks, how many drinks of wine, beer, or other alcoholic beverages did you have?: no alcohol at all Do you exercise for about 20 minutes 3 or more times a week?: no, I usually do not exercise this much Have you been given information to help with the following?: yes: Keeping track of your medications? and no: Hazards in your house that might hurt you? How often do you have trouble taking medicines the way you have been told to take them?: I always take medicine as prescribed How confident are you that you can control & manage most of your health problems?: very confident What is your race?: Other Mini Mental State Exam (MMSE) Orientation What is the (year) (season) (date) (day) (month)?: year, season, date, day and month Where are we (state) (county) (town or city) (hospital) (floor)?: state, county, town or city, hospital/clinic and floor Score Score: 10 Activity of Daily Living Bathing - sponge bath, tub bath or shower: receives no assistance (gets in/out by self, if usual bathing means Dressing - getting clothes from closets & drawers, including inner/outer garments & fasteners.: gets clothes & gets completely dressed without help Toileting - going to the 'toilet room' for urine/bowel elimination & cleaning self/arranging clothes: goes to toilet room, cleans self, arranges clothes without help Transfer: moves in & out of bed and chair without help (may use support object) Continence: controls urination/bowel movements completely by self Feeding: feeds self without help Total Score: 0 Information obtained from: patient Using telephone: independent Traveling: needs assistance Shopping: needs assistance Preparing meals: independent Housework: needs assistance Taking medicine: independent Managing money: independent PHQ-9 Over the last 2 weeks, how often have you been bothered by any of the following problems? 1. Little interest or pleasure in doing things: nearly every day 2. Feeling down, depressed, or hopeless: more than half the days 3. Trouble falling or staying asleep, or sleeping too much: nearly every day 4. Feeling tired or having little energy: nearly every day 5. Poor appetite or overeating: more than half the days 6. Feeling bad about yourself - or that you are a failure or have let yourself or your family down: nearly every day 7. Trouble concentrating on things, such as reading the newspaper or watching television: nearly every day 8. Moving or speaking so slowly that other people could have noticed. Or the opposite - being so fidgety or restless that you have been moving around a lot more than usual: not at all 9. Thoughts that you would be better off or of hurting yourself in some way: several days Total score: 20 Depression Screening Interpretation: Positive Depression Screening Follow-up: Existing condition and In treatment Depression Screening Done: Yes 11772 - PHQ-9 Billing: Yes Source: Developed by Drs. Daniel Petersen, Valarie Montgomery, Dami Doyle and colleagues, with an educational marie from [employer]. PHQ-2/PHQ-9 PHQ-2 Over the last 2 weeks, how often have you been bothered by any of the following problems? 1. Little interest or pleasure in doing things: nearly every day 2. Feeling down, depressed, or hopeless: more than half the days Total score: 5 If score is 3 or greater, continue 3. Trouble falling or staying asleep, or sleeping too much: nearly every day 4. Feeling tired or having little energy: nearly every day 5. Poor appetite or overeating: more than half the days 6. Feeling bad about yourself - or that you are a failure or have let yourself or your family down: nearly every day 7. Trouble concentrating on things, such as reading the newspaper or watching television: nearly every day 8. Moving or speaking so slowly that other people could have noticed. Or the opposite - being so fidgety or restless that you have been moving around a lot more than usual: not at all 9. Thoughts that you would be better off or of hurting yourself in some way: several days Total score: 20 10. If you checked off any problems, how difficult have those problems made it for you to do your work, take care of things at home, or get along with other people?: very difficult 0-4 None-Minimal, 5-9 Mild, 10-14 Moderate, 15-19 Moderately Severe, 20-27 Severe Source: Developed by Drs. Daniel Petersen, Valarie Montgomery, Dami Doyle and colleagues, with an educational marie from [employer]. Thrive Questionnaire Date Thrive assessed: 08/03/24 I am a: Patient What is your living situation today?: I have a steady place to live Within the past 12 months, did the food you bought not last and you didn't have the money to get more?: Never true Within the past 12 months, did you worry whether your food would run out before you got money to buy more?: Never true Do you have trouble paying for medicines?: No Do you have trouble getting transportation to medical appointments?: No Do you have trouble paying your heating and electricity bill?: No Do you have trouble taking care of your child, family member or friend?: No Do you have trouble with day-to-day activities such as bathing, preparing meals, shopping, managing finances, etc.?: No Are you currently unemployed and looking for a job?: No Are you interested in more education?: No Please select the resources that you would like help with: None Currently or been in a relationship where the following occur: No concerns reported THRIVE Score: 0 RAUL-7 AMB Questionnaire RAUL-7 Date RAUL - 7 assessed: 08/03/24 Feeling nervous, anxious, or on edge: 0 = Not at all Not being able to stop or control worryin = Not at all Worrying too much about different things: 0 = Not at all Trouble relaxin = Not at all Being so restless that it is hard to sit still: 0 = Not at all Becoming easily annoyed or irritable: 0 = Not at all Feeling afraid as if something awful might happen: 0 = Not at all Total RAUL-7 score (0-4 normal; 5-9 mild; 10-14 moderate; 15-21 severe): 0 Source: Developed by Drs. Daniel Petersen, Valarie Montgomery, Dami Doyle and colleagues, with an educational marie from [employer]. Review of Systems Const Denies chills, Reports fatigue, Denies fever(s) and Denies headache(s) ENT Denies dysphagia, Denies dizziness, Denies otalgia, Denies headache(s), Reports neck pain, Denies odynophagia and Denies sore throat Card Denies chest pain, Denies rapid heart rate, Denies palpitations and Reports dyspnea on exertion Resp Reports chest congestion (chest feels tight at times), Reports cough (on and off), Reports excessive phlegm production (coughs up thick whitish to yellowish phlegm often), Denies pain with cough, Reports dyspnea on exertion and Denies wheezing GI Reports abdominal pain (diffuse but especially over the lower abdomen), Denies hematochezia, Reports constipation (at times), Denies dysphagia, Denies heartburn, Denies diarrhea, Reports nausea (occasionally), Denies odynophagia and Denies vomiting Denies difficulty voiding, Denies nocturia, Denies dysuria and Denies urinary urgency Musc Reports back pain (over the lower back), Reports myalgias, Denies arthralgias and Reports neck pain Skin/Breast Denies rash Neuro Denies dizziness and Denies headache(s) Endo Reports fatigue and Denies palpitations Aller/Immun Denies wheezing Physical Exam Vital Signs: Last Vital Signs Pulse 56 08/03/24 12:57 BP 124/78 08/03/24 12:57 Pulse Ox 93 08/03/24 12:57 Oxygen Delivery Method Nasal Cannula 08/03/24 12:57 Oxygen Flow Rate 3 08/03/24 12:57 BMI result Body Mass Index 20.2 IPPE/AWV: Balance Romberg Yes . Tandem walk No . Walk and Turn No . Rise from sit to stand No . Vision Corrective lens No Vision screen pass Hearing Whisper test pass . Urinary incont. no. EKG Not clinically necessary. Const Other: has oxygen on via nasal cannula General: no acute distress, alert and tired appearing Orientation/consciousness: patient oriented x3 HEENT Ears: TM's normal bilaterally and EAC's normal Throat: Yes posterior oropharynx normal and Yes tonsils normal (no TP congestion noted) Neck Neck: Yes supple and No lymphadenopathy Thyroid: Thyroid normal Resp Auscultation: no crackles, no rales, rhonchi (occasional) throughout, no wheezes and diminished lung sounds bilateral Cardio Rate: regular rate Rhythm: regular rhythm Heart sounds: no murmurs GI Palpation (GI): Soft to palpation, Tenderness to palpation present (GI) (diffuse but especially over the lower abdomen/hypogastric area), no guarding, not rigid and No Rebound tenderness present Auscultation: normal bowel sounds General: Yes no CVA tenderness Back/Spine/Pelvis Back: no CVA tenderness Thoracic/Lumbar Spine: No lumbar spinal tenderness Skin Rashes: no rashes Neuro General: patient oriented x3 Extrem General: Yes no clubbing, cyanosis or edema Assessment & Plan Assessment & Plan (1) Medicare annual wellness visit, subsequent: Code(s): Z00.00 - Encounter for general adult medical examination without abnormal findings Plan: HRA forms discussed with and completed with patient; forms will be scanned into patient's chart [place] updated (2) COPD (chronic obstructive pulmonary disease): Comment: CHRONIC, MODERATELY SEVERE, CONTROLLED AND STABLE. TX : CONT. INCRUSE ONE INH DAILY . ADVAIR 250-50 ONE INH BID . PROAIR 2 PUFFS Q 4-6 HRS ONLY PRN Code(s): J44.9 - Chronic obstructive pulmonary disease, unspecified Qualifiers: COPD type: unspecified COPD Qualified Code(s): J44.9 - Chronic obstructive pulmonary disease, unspecified Plan: She has moderately severe COPD and is now also on oxygen inhalation 06/12 although she takes it off from time to time when she is at home She is supposed to be on Wixela Inhub 250-50 mcg 2 inhalations BID and Incruse Ellipta 62.5 mcg 1 inhalation QD for maintenance Tx but she again appears to not be using these inhalers for unknown duration of time and has only been using her Albuterol HFA 1 to 2 inhalations every 6 hours as needed, which she has been advised several times in the past is not the proper way to use her inhalers She reports feeling jittery at times after using her Albuterol inhaler, which I have advised, is a known side effect of Albuterol especially when it is used too much We also started her on Montelukast 10 mg Q PM at her last visit but she is unclear at this time if she ever started taking it but it looks like she is taking it as a prescription for Montelukast was requested by her pharmacy just this past week Will send in again Rx for her Wixela Inhub and Incruse Ellipta at this time She used to see Dr. Ellis for pulmonary follow up but has not been back to see him since November 2020 States that she felt that he was very rude at her last appointment when she told him that she was not going to quit smoking and she does not wish to go back to see him, although she ended up quitting smoking completely early last year due to her increased chest tightness and congestion and respiratory symptoms - states that she was getting to a point where she could not catch her breath at the time Have advised her that we can try referring her to another integration specialist if she wants but she again declined offer for pulmonary referral at this time (3) Nocturnal hypoxemia: Comment: USE O2 2 L/MT AT NIGHT AND MAY USE DURING DAYTIME , PRN Code(s): G47.34 - Idiopathic sleep related nonobstructive alveolar hypoventilation Plan: She was using her oxygen only when sleeping at night as needed previously but she appears to now be using it mostly 24/7 and takes it off only from time to time when she is at home Follow up with Sleep Medicine/ Pulmonary as scheduled (4) Abdominal pain: Code(s): R10.9 - Unspecified abdominal pain Qualifiers: Abdominal location: generalized Qualified Code(s): R10.84 - Generalized abdominal pain Plan: Patient appears to have been struggling with this over the past year, at least since she was last seen here almost a year ago now She was previously sent for abdominal x-rays, which she never did get done Will send her now for some labs JENNIFER for further evaluation Will also send her for abdominal US for further evaluation - she is advised that she will be contacted by radiology to schedule this once insurance approval is done She did have EGD and colonoscopy done by Dr. Machuca back in 2019 - EGD revealed (+) hiatal hernia and some adenomatous gastric/duodenal polyps and colonoscopy was positive for tubular adenomas We will go ahead and start her (for now) on a trial of Omeprazole 20 mg QD (5) Coronary artery disease: Code(s): I25.10 - Atherosclerotic heart disease of nikolai coronary artery without angina pectoris Qualifiers: Coronary Disease-Associated Artery/Lesion type: nikolai artery [place] vs. transplanted heart: nikolai heart Associated angina: without angina Qualified Code(s): I25.10 - Atherosclerotic heart disease of nikolai coronary artery without angina pectoris Plan: Patient currently remains asymptomatic from a cardiovascular standpoint Continue Metoprolol 25 mg BID (6) Pure hypercholesterolemia: Code(s): E78.00 - Pure hypercholesterolemia, unspecified Plan: Reinforced low cholesterol diet Will send her to get her follow up labs done JENNIFER and recheck her fasting lipids, among other labs, while she is here today with her daughter as it has proven challenging to get her follow up labs done in the past as she has no easy access to transportation normally Her total and LDL cholesterol numbers were elevated at 218 mg/dl and 150 mg/dl respectively when they were last checked in February 2022 Patient has declined being started on cholesterol-lowering medications in the past and continues to do so - states that she has had problems tolerating statins in the past (7) Vitamin D deficiency: Code(s): E55.9 - Vitamin D deficiency, unspecified Plan: Continue Vitamin D3 2000 units QD Will recheck her Vitamin D level JENNIFER for follow up (8) Constipation: Code(s): K59.00 - Constipation, unspecified Qualifiers: Constipation type: unspecified constipation type Qualified Code(s): K59.00 - Constipation, unspecified Plan: She is encouraged again on increased oral fluids and dietary fiber Continue Senna 8.6 mg 1 to 2 caps Q HS PRN (9) Cervical spondylosis: Code(s): M47.812 - Spondylosis without myelopathy or radiculopathy, cervical region Plan: (+) mild spondylosis seen on cervical spine x-[place] done [place] [facility] [place] Patient declined offer to send her for repeat cervical spine x-rays for follow up She is again advised to just take some OTC Tylenol for pain when needed but to avoid Ibuprofen for now due to her abdominal complaints (10) Insomnia: Code(s): G47.00 - Insomnia, unspecified Qualifiers: Insomnia type: unspecified Qualified Code(s): G47.00 - Insomnia, unspecified Plan: Sleep hygiene reinforced Continue Trazodone 50 mg Q HS PRN (11) Anxiety and depression: Code(s): F41.9 - Anxiety disorder, unspecified; F32.9 - Major depressive disorder, single episode, unspecified Plan: Continue Sertraline 50 mg QD Plan Follow up in 6 months Orders: Orders Complete Blood Count Auto Diff 08/03/24 D64.9 - Anemia, unspecified, R10.9 - Unspecified abdominal pain, Z00.00 - Encounter for general adult medical examination without abnormal findings TSH reflex Free T4 08/03/24 E78.00 - Pure hypercholesterolemia, unspecified, R10.9 - Unspecified abdominal pain, Z00.00 - Encounter for general adult medical examination without abnormal findings Vitamin D 25-OH Total 08/03/24 E55.9 - Vitamin D deficiency, unspecified, R10.9 - Unspecified abdominal pain, Z00.00 - Encounter for general adult medical examination without abnormal findings Lipase 08/03/24 R10.9 - Unspecified abdominal pain, Z00.00 - Encounter for general adult medical examination without abnormal findings Lipid Panel 08/03/24 E78.00 - Pure hypercholesterolemia, unspecified, R10.9 - Unspecified abdominal pain Comprehensive [place]. Panel Fast 08/03/24 E78.00 - Pure hypercholesterolemia, unspecified, R10.9 - Unspecified abdominal pain UA CC w/rflx Micro + Cult 08/03/24 R10.9 - Unspecified abdominal pain, R30.0 - Dysuria, Z00.00 - Encounter for general adult medical examination without abnormal findings US abdomen complete 08/03/24 R10.9 - Unspecified abdominal pain Medications: New omeprazole 20 mg PO DAILY 30 days 30 caps 3RF Refilled Wixela Inhub 250-50 mcg/dose (fluticasone propion-salmeterol) 2 inhalations inhalation BID 90 days 60 ea 3RF NS Incruse Ellipta 62.5 mcg/actuation (umeclidinium) 1 inh inhalation DAILY 90 days 90 ea 1RF NS Quality Reporting (2019) Depression/Bipolar (159/160/161/177) PHQ-9: Total score: 20 Coding Level of Care Code Medicare Subsequent (G0439) Est Pt Level 4 (07018) Diagnoses Medicare annual wellness visit, subsequent Z00.00 Chronic obstructive pulmonary disease, unspecified COPD type J44.9 COPD type: unspecified COPD Nocturnal hypoxemia G47.34 Generalized abdominal pain R10.84 Abdominal location: generalized Coronary artery disease involving [place] coronary artery of [place] heart without angina pectoris I25.10 Coronary Disease-Associated Artery/Lesion type: [place] artery [place] vs. transplanted heart: [place]ai heart Associated angina: without angina Pure hypercholesterolemia E78.00 Vitamin D deficiency E55.9 Constipation, unspecified constipation type K59.00 Constipation type: unspecified constipation type Cervical spondylosis M47.812 Insomnia, unspecified type G47.00 Insomnia type: unspecified Anxiety and depression F41.9; F32.9 Additional Codes PHQ-9 - 42117 - PHQ-9 Billing: Yes ([id number]) Advance Care Planning Advance Care Planning discussion: Exists, not on file (HCP, MOLST and DNR forms provided to patient - will complete at home and bring back) Date of discussion: 08/03/24 Who was present: patient, daughter, PCP Forms completed: Health Care Proxy, MOLST and Comfort care/DNR Actual minutes spent: 18
== END 2024-08-03 14:06 | disposition home or self-care (01) ==
LOC: HO.HMCH 12:53
PROVIDERS: PCP Internal Medicine; Visit Provider Internal Medicine
DX: Z00.00 Encounter for general adult medical examination without abnormal findings (principal); J44.9 Chronic obstructive pulmonary disease, unspecified; G47.34 Idiopathic sleep related nonobstructive alveolar hypoventilation; R10.84 Generalized abdominal pain; I25.10 Atherosclerotic heart disease of native coronary artery without angina pectoris; E78.00 Pure hypercholesterolemia, unspecified; E55.9 Vitamin D deficiency, unspecified; K59.00 Constipation, unspecified; M47.812 Spondylosis without myelopathy or radiculopathy, cervical region; G47.00 Insomnia, unspecified; F41.9 Anxiety disorder, unspecified; F32.9 Major depressive disorder, single episode, unspecified

== ENCOUNTER 2025-02-04 13:07 | Outpatient (REF) | payer MEDICARE, MEDICAID, SELFPAY | END 2025-02-04 13:08 | disposition home or self-care (01) | LOC: HO.XRAY 13:07 | PROVIDERS: PCP Internal Medicine; Visit Provider Internal Medicine | DX: J44.9 Chronic obstructive pulmonary disease, unspecified (principal); R06.00 Dyspnea, unspecified; G47.34 Idiopathic sleep related nonobstructive alveolar hypoventilation; R10.84 Generalized abdominal pain; I25.10 Atherosclerotic heart disease of native coronary artery without angina pectoris; E78.00 Pure hypercholesterolemia, unspecified; E55.9 Vitamin D deficiency, unspecified; K59.00 Constipation, unspecified; M47.812 Spondylosis without myelopathy or radiculopathy, cervical region; G47.00 Insomnia, unspecified; F41.9 Anxiety disorder, unspecified; F32.9 Major depressive disorder, single episode, unspecified; Z79.2 Long term (current) use of antibiotics; Z79.899 Other long term (current) drug therapy | CPT/HCPCS: 71046; 99212 ==

== ENCOUNTER 2025-02-04 13:07 | Outpatient (AMB) | payer MEDICARE, MEDICAID, SELFPAY ==
[2025-02-04 13:15] VITALS: BP 102/60; PULSE 91; TEMP 36.3; O2SAT 98; BMI 19.0
--- NOTE | 2025-02-04 13:15 | A.OFFPC_ITS ---
Vital Signs 02/04/25 13:15 Height 5 ft 3 in Weight 107 lb 2 oz BMI 19.0 BP 102/60 Blood Pressure Location Rt brachial Position Sitting Pulse 91 Pulse Source Pulse Oximeter Temp 97.3 F Temp Source Temporal Artery Scan Pulse Oximetry (%) 98 Oxygen Delivery Method Nasal Cannula Oxygen Flow Rate 4 Intake Visit Reasons: 6mth f/u Accompanied by: Sister Allergies nickel Allergy (Intermediate, Verified 02/04/25 13:28) Hives oxycodone (From PERCOCET) Allergy (Intermediate, Verified 02/04/25 13:28) HIVES bacitracin (BACITRACIN) Allergy (Unknown, Verified 02/04/25 13:28) BLISTERS, rash Medication List - Last Reconciled 02/04/25 by Lanre Webb MD albuterol sulfate 90 mcg/actuation 2 puffs inhalation Q6H PRN 90 days albuterol sulfate 2.5 mg (3 mL) continuous nebulization QID PRN 30 days cholecalciferol (vitamin D3) 50 mcg PO DAILY 90 days Incruse Ellipta 62.5 mcg/actuation (umeclidinium) 1 inh inhalation DAILY 90 days NS metoprolol tartrate 25 mg PO BID 90 days nitroglycerin 0.4 mg sublingual Q5M PRN omeprazole 20 mg PO DAILY 30 days [OXYGEN CONCENTRATOR As directed] sertraline 50 mg PO DAILY 90 days trazodone 50 mg PO BEDTIME PRN 90 days Wixela Inhub 250-50 mcg/dose (fluticasone propion-salmeterol) 2 inhalations inhalation BID 90 days NS Tobacco use date assessed: 02/04/25 Fall risk assessment: No Falls in past year Last assessed Fall Risk: 02/04/25 Dental Screening Dental Screen Date: 02/04/25 Did you have a dental visit in the last 12 months?: No Did you have a dental problem in the last 6 months where you did not have access to dental care?: No Was dental information given to patient?: No HPI 6mth f/u HPI Details Patient comes in today for her follow up visit States that she has been experiencing increased cough and congestion and increased SOB/SOTO for the past couple of weeks She has her oxygen on 06/12 but states that she is still feeling very SOB even with her oxygen on States that her chest feels very tight often and she can hardly do anything in terms of activity even just at home She denies any fever or headaches Relates that she gets dizzy at times with increased activity/exertion lately Denies any exertional chest pains No nausea/vomiting; still has recurrent abdominal pains and states that she has not yet been able to get her previously ordered abdominal US done as she is dependent on her sister, who lives out of town, for transportation No change in bowel habits noted States that she does not really have any appetite all the time and eats very little when she does, often times just once or twice a day, and she has again lost some weight since her last visit She would like to know how her labs done back in July 2024 came out [facility] Medical History Vitamin D deficiency Pure hypercholesterolemia Smoker Coronary artery disease Anxiety and depression Insomnia Nocturnal hypoxemia COPD (chronic obstructive pulmonary disease) Smoking Surgical History History of esophagogastroduodenoscopy (EGD) Hx of colonoscopy History of heart artery stent S/P skin cancer resection S/P Mohs surgery for basal cell carcinoma Status post open reduction with internal fixation (ORIF) of fracture of ankle History of lumpectomy of left breast Status post appendectomy Status post SHABBIR-BSO Family History Brother Hypertension Diabetes mellitus Myocardial infarction Colon cancer, Onset Age: 70 Sister Hypertension Diabetes mellitus Father Hypertension Stroke Daughter Breast cancer, Onset Age: 49 Mother Myocardial infarction Social History Housing: Apartment Alcohol intake: current Alcohol intake frequency: a few times a month Alcohol type: wine Patient Tobacco Use Status: Current everyday Tobacco user Tobacco use type: Cigarette Cigarettes Per Day: 8 e-Cigarette/Vaping Use: Never Used Second Hand Smoke Exposure: Yes Current occupational status: retired and disabled Cognitive needs: No Hearing needs: No Vision needs: Yes Questionnaire PHQ-9 Over the last 2 weeks, how often have you been bothered by any of the following problems? 1. Little interest or pleasure in doing things: nearly every day 2. Feeling down, depressed, or hopeless: more than half the days 3. Trouble falling or staying asleep, or sleeping too much: nearly every day 4. Feeling tired or having little energy: nearly every day 5. Poor appetite or overeating: more than half the days 6. Feeling bad about yourself - or that you are a failure or have let yourself or your family down: nearly every day 7. Trouble concentrating on things, such as reading the newspaper or watching television: nearly every day 8. Moving or speaking so slowly that other people could have noticed. Or the opposite - being so fidgety or restless that you have been moving around a lot more than usual: not at all 9. Thoughts that you would be better off or of hurting yourself in some way: several days Total score: 20 Depression Screening Interpretation: Positive Depression Screening Follow-up: Existing condition and In treatment Depression Screening Done: Yes Source: Developed by Drs. Daniel Petersen, Valarie Montgomery, Dami Doyle and colleagues, with an educational marie from [employer]. Thrive Questionnaire Date Thrive assessed: 08/03/24 I am a: Patient What is your living situation today?: I have a steady place to live Within the past 12 months, did the food you bought not last and you didn't have the money to get more?: Never true Within the past 12 months, did you worry whether your food would run out before you got money to buy more?: Never true Do you have trouble paying for medicines?: No Do you have trouble getting transportation to medical appointments?: No Do you have trouble paying your heating and electricity bill?: No Do you have trouble taking care of your child, family member or friend?: No Do you have trouble with day-to-day activities such as bathing, preparing meals, shopping, managing finances, etc.?: No Are you currently unemployed and looking for a job?: No Are you interested in more education?: No Please select the resources that you would like help with: None Currently or been in a relationship where the following occur: No concerns reported THRIVE Score: 0 AUDIT C Alcohol Use Questionnaire (AUDIT-C) 1. How often do you have a drink containing alcohol?: Monthly or less 2. How many drinks containing alcohol do you have on a typical day when you are drinking?: 1 or 2 3. How often do you have six or more drinks on one occasion?: Never Total Score: 1 Score Reviewed/Action Taken: Yes RAUL-7 AMB Questionnaire RAUL-7 Date RAUL - 7 assessed: 08/03/24 Feeling nervous, anxious, or on edge: 0 = Not at all Not being able to stop or control worryin = Not at all Worrying too much about different things: 0 = Not at all Trouble relaxin = Not at all Being so restless that it is hard to sit still: 0 = Not at all Becoming easily annoyed or irritable: 0 = Not at all Feeling afraid as if something awful might happen: 0 = Not at all Total RAUL-7 score (0-4 normal; 5-9 mild; 10-14 moderate; 15-21 severe): 0 Source: Developed by Drs. Daniel Petersen, Valarie Montgomery, Dami Doyle and colleagues, with an educational marie from [employer]. Review of Systems Const Denies chills, Reports fatigue, Denies fever(s), Denies headache(s), Reports poor appetite and Reports weight loss ENT Denies dysphagia, Reports dizziness (occasionally lately, especially with increased exertion), Denies otalgia, Denies headache(s), Reports neck pain, Denies odynophagia and Denies sore throat Card Denies chest pain, Denies rapid heart rate, Denies palpitations and Reports dyspnea on exertion (worse over the past couple of weeks) Resp Reports chest congestion (chest feels tight often lately), Reports cough (recurrent; coughs up thick whitish to yellowish phlegm), Reports excessive phlegm production (coughs up thick whitish to yellowish phlegm often), Denies pain with cough, Reports dyspnea on exertion (worse over the past couple of weeks) and Denies wheezing GI Reports abdominal pain (diffuse but especially over the lower abdomen), Denies hematochezia, Reports constipation (at times), Denies dysphagia, Denies heartburn, Denies diarrhea, Reports nausea (occasionally), Denies odynophagia and Denies vomiting Denies difficulty voiding, Denies nocturia, Denies dysuria and Denies urinary urgency Musc Reports back pain (over the lower back), Reports myalgias, Denies arthralgias and Reports neck pain Skin/Breast Denies rash Neuro Reports dizziness (occasionally lately, especially with increased exertion) and Denies headache(s) Endo Reports fatigue and Denies palpitations Aller/Immun Denies wheezing Physical exam (Primary Care) Vital Signs: Last Vital Signs Temp 97.3 F 02/04/25 13:15 Pulse 91 02/04/25 13:15 BP 102/60 02/04/25 13:15 Pulse Ox 98 02/04/25 13:15 Oxygen Delivery Method Nasal Cannula 02/04/25 13:15 Oxygen Flow Rate 4 02/04/25 13:15 BMI result Body Mass Index 19.0 Tobacco/Smoking Status: Tobacco use Status Tobacco use date assessed 02/04/25 02/04/25 13:23 Patient Tobacco Use Status Current everyday Tobacco 02/04/25 13:23 Tobacco use type Cigarette 02/04/25 13:23 e-Cigarette/Vaping Use Never Used 02/04/25 13:23 PHQ-9: PHQ-9 Score PHQ-9: Total score 20 02/04/25 13:48 Depression Screening Interpretation: Positive Depression Screening Follow-up: Existing condition and In treatment Thrive Assessment: Date of Thrive Assessment Date Thrive assessed 08/03/24 02/04/25 13:23 Currently or been in a relationship where the following occur: No concerns reported Const General: no acute distress and alert HENMT Ears: TM's normal bilaterally and EAC's normal Throat: Yes posterior oropharynx normal and Yes tonsils normal (no TP congestion) Neck Neck: No lymphadenopathy and Yes tender Thyroid: Thyroid normal Resp Auscultation: no crackles, no rales, rhonchi (scattered) throughout, no wheezes and diminished lung sounds (significantly) bilateral Cardio Rate: regular rate Rhythm: regular rhythm Heart sounds: no murmurs GI Palpation (GI): Soft to palpation, Tenderness to palpation present (GI) (over the lower abdomen) with no rebound tenderness, no guarding, not rigid, no hernias and no masses General: Yes no CVA tenderness Back/Spine/Pelvis Back: no CVA tenderness Cervical Spine: Cervical spine tenderness Thoracic/Lumbar Spine: lumbar spinal tenderness Skin Rashes: no rashes Extrem General: Yes no clubbing, cyanosis or edema Results Reviewed Results Reviewed: Laboratory Tests 08/03/24 08/03/24 14:40 14:45 WBC 4.6 L Hgb 11.9 L Hct 37.4 Plt Count 161 D Sodium 141 Potassium 4.1 Creatinine 0.67 Estimated GFR > 60 Fasting Glucose 111 H Calcium 9.3 AST 15 ALT 14 Triglycerides 94 Cholesterol 220 H LDL Cholesterol, Calc 151 H HDL Cholesterol 51 Lipase 15 25-OH Vitamin D Total 40.2 TSH 1.69 Ur Specific [place] 1.025 Urine Protein Trace Urine Glucose (UA) Negative Urine Blood Trace H Urine Nitrite Negative Ur Leukocyte Esterase Trace H Coding Level of Care Code Est Pt Level 4 (11173) Diagnoses Chronic obstructive pulmonary disease, unspecified COPD type J44.9 COPD type: unspecified COPD Nocturnal hypoxemia G47.34 Generalized abdominal pain R10.84 Abdominal location: generalized Coronary artery disease involving [place] coronary artery of [place] heart without angina pectoris I25.10 Associated angina: without angina Coronary Disease-Associated Artery/Lesion type: [place] artery [place] vs. transplanted heart: [place] heart Pure hypercholesterolemia E78.00 Vitamin D deficiency E55.9 Constipation, unspecified constipation type K59.00 Constipation type: unspecified constipation type Cervical spondylosis M47.812 Insomnia, unspecified type G47.00 Insomnia type: unspecified Anxiety and depression F41.9; F32.9 Assessment & Plan Assessment & Plan (1) COPD (chronic obstructive pulmonary disease): Comment: CHRONIC, MODERATELY SEVERE, CONTROLLED AND STABLE. TX : CONT. INCRUSE ONE INH DAILY . ADVAIR 250-50 ONE INH BID . PROAIR 2 PUFFS Q 4-6 HRS ONLY PRN Code(s): J44.9 - Chronic obstructive pulmonary disease, unspecified Category: Medical Qualifiers: COPD type: unspecified COPD Qualified Code(s): J44.9 - Chronic obs tructive pulmonary disease, unspecified Plan: She has moderately severe COPD and is on oxygen inhalation 06/12 Continue Wixela Inhub 250-50 mcg 2 inhalations BID and Incruse Ellipta 62.5 mcg 1 inhalation QD for maintenance Tx and Albuterol HFA 1 to 2 inhalations every 6 hours as needed Continue Montelukast 10 mg Q PM She used to see Dr. Ellis for pulmonary follow up but has not been back to see him since November 2020 She felt that he was very rude at her last appointment when she told him that she was not going to quit smoking and she does not wish to go back to see him, although she ended up quitting smoking completely early last year due to her increased chest tightness and congestion and respiratory symptoms - states that she was getting to a point where she could not catch her breath at the time She previously declined referral to pulmonary but now agrees to see pulmonary again but again emphasized that she does not want to see Dr. Ellis - will try referring her to Dr. Velasco instead She is also advised that based on her exam today, she may possibly have pneumonia and I will have her go and get some chest x-rays done JENNIFER and if her imaging studies confirm (+) pneumonia, then I will go ahead and send in the appropriate Rx for her (2) Nocturnal hypoxemia: Comment: USE O2 2 L/MT AT NIGHT AND MAY USE DURING DAYTIME , PRN Code(s): G47.34 - Idiopathic sleep related nonobstructive alveolar hypoventilation Category: Medical Plan: She was using her oxygen only when sleeping at night as needed previously but she appears to now be using it mostly 24/ and takes it off only from time to time when she is at home Follow up with Sleep Medicine/ Pulmonary as scheduled (3) Abdominal pain: Code(s): R10.9 - Unspecified abdominal pain Category: Medical Qualifiers: Abdominal location: generalized Qualified Code(s): R10.84 - Generalized abdominal pain Plan: Patient appears to have been struggling with this over the past year She was previously sent for abdominal US, which she never did get done - states that she has trouble with transportation She did have EGD and colonoscopy done by Dr. Machuca back in 2019 - EGD revealed (+) hiatal hernia and some adenomatous gastric/duodenal polyps and colonoscopy was positive for tubular adenomas Continue Omeprazole 20 mg QD although she does not think that this is helping with her abdominal symptoms at all (4) Coronary artery disease: Code(s): I25.10 - Atherosclerotic heart disease of [place] coronary artery without angina pectoris Category: Medical Qualifiers: Associated angina: without angina Coronary Disease-Associated Artery/Lesion type: [place] artery [place] vs. transplanted heart: [place] heart Qualified Code(s): I25.10 - Atherosclerotic heart disease of [place] coronary artery without angina pectoris Plan: Patient currently remains asymptomatic from a cardiovascular standpoint Continue Metoprolol 25 mg BID (5) Pure hypercholesterolemia: Code(s): E78.00 - Pure hypercholesterolemia, unspecified Category: Medical Plan: Results of her labs done back in July 2024 reviewed and discussed with patient - she is advised that her cholesterol levels are elevated but are mostly unchanged from a few years ago when they were previously checked in 2021 Reinforced low cholesterol diet Patient has declined being started on cholesterol-lowering medications in the past and continues to do so - states that she has had problems tolerating statins in the past (6) Vitamin D deficiency: Code(s): E55.9 - Vitamin D deficiency, unspecified Category: Medical Plan: Continue Vitamin D3 2000 units QD (7) Constipation: Code(s): K59.00 - Constipation, unspecified Category: Medical Qualifiers: Constipation type: unspecified constipation type Qualified Code(s): K59.00 - Constipation, unspecified Plan: She is encouraged again on increased oral fluids and dietary fiber intake Continue Senna 8.6 mg 1 to 2 caps Q HS PRN (8) Cervical spondylosis: Code(s): M47.812 - Spondylosis without myelopathy or radiculopathy, cervical region Category: Medical Plan: (+) mild spondylosis seen on cervical spine x-rays done [place] [facility] [place] Patient declined offer to send her for repeat cervical spine x-rays for follow up She is again advised to just take some OTC Tylenol for pain when needed but to avoid Ibuprofen for now due to her abdominal complaints (9) Insomnia: Code(s): G47.00 - Insomnia, unspecified Category: Medical Qualifiers: Insomnia type: unspecified Qualified Code(s): G47.00 - Insomnia, unspecified Plan: Sleep hygiene reinforced Continue Trazodone 50 mg Q HS PRN (10) Anxiety and depression: Code(s): F41.9 - Anxiety disorder, unspecified; F32.9 - Major depressive disorder, single episode, unspecified Category: Medical Plan: Continue Sertraline 50 mg QD Plan To return as scheduled in July 2025 for her AWV and follow up visit Orders: Orders XR chest 2V 2 Weeks J18.9 - Pneumonia, unspecified organism XR chest 2V Today J44.9 - Chronic obstructive pulmonary disease, unspecified, R06.00 - Dyspnea, unspecified Referrals Pulmonology Referral G47.34 - Idiopathic sleep related nonobstructive alveolar hypoventilation, J44.9 - Chronic obstructive pulmonary disease, unspecified, Z99.81 - Dependence on supplemental oxygen Medications: New cefuroxime axetil 500 mg PO BID 20 tabs 0RF 10 days Refilled montelukast 10 mg PO QPM 90 tabs 3RF 90 days
== END 2025-02-04 13:47 | disposition home or self-care (01) ==
PROVIDERS: PCP Internal Medicine; Visit Provider Internal Medicine
DX: J44.9 Chronic obstructive pulmonary disease, unspecified (principal); G47.34 Idiopathic sleep related nonobstructive alveolar hypoventilation; R10.84 Generalized abdominal pain; I25.10 Atherosclerotic heart disease of native coronary artery without angina pectoris; E78.00 Pure hypercholesterolemia, unspecified; E55.9 Vitamin D deficiency, unspecified; K59.00 Constipation, unspecified; M47.812 Spondylosis without myelopathy or radiculopathy, cervical region; G47.00 Insomnia, unspecified; F41.9 Anxiety disorder, unspecified; F32.9 Major depressive disorder, single episode, unspecified

== ENCOUNTER → 2025-02-04 14:12 | Outpatient (BNV) | payer MEDICARE, MEDICAID, SELFPAY | PROVIDERS: PCP Internal Medicine; Visit Provider Radiology Diagnostic Radiology | DX: J18.9 Pneumonia, unspecified organism (principal); J44.9 Chronic obstructive pulmonary disease, unspecified | CPT/HCPCS: 71046 ==